=== PATIENT | female | born 1940 | race Two or more races ===

== ENCOUNTER 2024-04-12 07:04 | Day surgery (SDC) | payer OTHER ==
[2024-04-10 10:17] VITALS: BP 140/80
[2024-04-10 10:59] LABS: HEMATOCRIT 38.9 % (36.0-45.00); HEMOGLOBIN 13.2 g/dL (12.0-15.00); MEAN CELL VOLUME 95.3 fL (80.00-100.00); MEAN CORPUSCULAR HEMOGLOBIN 32.3 pg (27.00-32.0); MEAN CORPUSCULAR HGB CONC 33.9 g/dl (32.0-36.0); PLATELET COUNT 224 K/uL (150-450); RED BLOOD COUNT 4.08 M/uL (4.00-6.00); RED CELL DISTRIBUTION WIDTH 13.2 % (11.5-14.5)
[2024-04-10 11:05] LABS: URINE APPEARANCE Cloudy; URINE BILIRRUBIN Negative (NEGATIVE); URINE BLOOD Trace; URINE COLOR Yellow; URINE GLUCOSE Negative (NEGATIVE); URINE KETONE Negative (NEGATIVE); URINE LEUKOCYTE Trace; URINE NITRATE Negative; URINE PROTEIN Negative (NEGATIVE); URINE UROBILINOGEN 0.2 E.U./dl
[2024-04-10 11:10] LABS: URINE BACTERIA 45.3 uL (0.0-1933); URINE EPITHELIAL CELLS 7.4 uL (0.0-38.8); URINE RBC 23.6 uL (0.0-20.8); URINE WBC 3.2 uL (0.0-23.2)
[2024-04-10 11:17] LABS: URINE CAST 0.15 uL (0.0-1.40)
[2024-04-10 11:20] LABS: INR 1.02; PARTIAL THROMBOPLASTIN TIME 26.7 SECONDS (22.0-34.0); PROTHROMBIN TIME 11.1 SECONDS (9.0-11.5)
[2024-04-10 11:31] LABS: ALBUMIN 4.2 gm/dL (3.4-5.0); BILIRUBIN TOTAL 0.61 mg/dL (0.3-1.2); CALCIUM 9.6 mg/dL (8.5-10.1); CREATININE SERUM 0.89 mg/dL (0.55-1.02); GFR 60.28; GLOBULINA 3.7 G/DL (2.4-3.5); POTASSIUM 4.28 mEq/L (3.5-5.1); TOTAL PROTEIN 7.9 gm/dL (6.4-8.2)
[~2024-04-12] VITALS: Ht 167.6 cm; Wt 63.5 kg
[~2024-04-12 07:04] MED LIST: CHILDREN'S ASPI81 MG PO; GLIPIZIDE XL5 MG PO; IRBESARTAN150 MG PO; NORVASC10 MG PO; PRAVASTATIN SOD20 MG PO; VITAMIN D310 MCG/1 M PO
[2024-04-12] MEDS ORDERED: CEFAZOLIN SODIUM 1,000 MG VIAL ONE (09:55)
[2024-04-12] MEDS ORDERED: MORPHINE SULFATE 4 MG/ML VIAL IV ONE (15:30)
== END 2024-04-12 17:35 | disposition home or self-care (01) ==
LOC: CIR.AMB 07:04
PROVIDERS: ATTEND Surgery
DX: C50.812 Malignant neoplasm of overlapping sites of left female breast (principal); D65 Disseminated intravascular coagulation [defibrination syndrome]; I10 Essential (primary) hypertension; E11.9 Type 2 diabetes mellitus without complications; E03.9 Hypothyroidism, unspecified